=== PATIENT | male | born 1975 | race Caucasian/White ===

== ENCOUNTER → 2017-08-15 | Outpatient (CLI) | payer OTHER ==
--- NOTE | 2017-08-15 12:39 | DIAGNOSTIC IMAGING REPORT ---
VIDEO SWALLOW CLINICAL HISTORY: 42 years-old Male with CHOKING. Acute dysphasia with cough. TECHNIQUE: Video fluoroscopic evaluation of swallowing was performed in the AP and lateral projections by the speech pathology staff. The patient is fed nectar-thick and thin liquid barium, a barium coated wafer, and barium pudding. FLUOROSCOPY TIME: 1.7 minutes. COMPARISON STUDY: Chest radiographs 04/28/2014. FINDINGS: There is normal hyoid excursion and epiglottic deflection. No significant penetration or aspiration identified. Minimal dysmotility with tertiary contractions noted within the distal third of esophagus. IMPRESSION: 1. No aspiration identified. 2. Please see the speech pathologist report for detailed findings and recommendations. Electronically signed by: Eduardo Figueroa M.D. 08/15/2017 12:38 PM Dictated Date/Time: 08/15/2017 12:36 PM
--- NOTE | 2017-08-15 14:13 | SWALLOWING EVALUATION ---
HISTORY: This 42 year old man was referred for a video swallow study at [facility] in order to rule out aspiration and identify the safest consistencies for optimal oral intake. The patient reports he has episodes of coughing/choking up to 3 times per day. He states this can happen at any time, not just while eating. He does not have any significant PMH. Current diet is regular. PROCEDURE: The patient was seen in the Radiology Department of [facility] for the [facility]. Cursory examination of the oral cavity revealed natural upper and lower dentition in good condition. Oral motor function was wnl. The patient was seated on a stool and was viewed in both the Anterior-Posterior (A-P) and Lateral planes. Volitional phonation exercises completed in the A-P plane revealed bilateral vocal fold movement and vocal intensity within functional limits. In the lateral plane, the patient was given the following boluses: 1 tsp. thin liquid barium x 2, single swallow thin liquid barium self-presented from a cup, sequential swallows of thin liquid barium self-presented from a straw, 1 tsp. nectar-thick liquid barium, single swallow nectar-thick liquid barium self-presented from a cup, 1 tsp. barium pudding, and 1 club cracker coated in barium pudding. The patient was then repositioned into the A-P plane and given the following boluses: 1 tsp. nectar thick barium and 1 tsp. barium pudding. RESULTS: Oral Stage: Lip closure was adequate. The patient was able to maintain a cohesive liquid bolus in the oral cavity. Mastication was timely and efficient. Lingual motion for bolus transport was brisk. There was retention lining the tongue and palate after the initial swallow. The initiation of the pharyngeal swallow occurred when the bolus head reached the posterior angle of the ramus. Pharyngeal Stage: Soft palate elevation was complete. Laryngeal elevation revealed complete superior movement of the thyroid cartilage with complete approximation of the arytenoids to the epiglottic base. Anterior hyoid excursion was partially reduced and epiglottic deflection was complete. Laryngeal vestibular closure was complete. The pharyngeal stripping wave was present and complete. Pharyngeal contraction was complete. There was complete distention and duration of the opening to the pharyngoesophageal segment (PES). Tongue base retraction was partially reduced with a narrow column of contrast located between the tongue base and pharyngeal wall during the swallow. There was retention located in the valleculae and pyriforms after the swallow. There was no evidence of laryngeal penetration or aspiration for this study. Mild retention cleared with a second swallow. No significant difficulty identified. Esophageal stage: The patient presented with mild distal esophageal retention and retrograde flow below the PES. This is suggestive of esophageal dysmotility and reflux. SUMMARY/RECOMMENDATIONS: This patient presents with normal nadira-pharyngeal swallowing mechanics. He presents with s/s of esophageal dysfunction. The following is recommended: 1. Regular diet and thin liquids. 2. GERD precautions. Fully upright for meals and for 30 minutes after meals. Do not lay flat, keep head of bed at a 30 degree angle at all times, even while sleeping. 3. Follow up PCP and consider a GI consultation re: management of esophageal dysphagia. Consider further testing via Barium Swallow and/or medication management as indicated. A summary of the results and recommendations was discussed with the patient immediately after the study with verbal understanding. Thank you for referral of this patient. Please contact me at if any additional information is needed.
== END | disposition home or self-care (01) ==
LOC: C.RAD 11:43
PROVIDERS: ATTEND Family Medicine
DX: T17.308A Unspecified foreign body in larynx causing other injury, initial encounter (principal); X58.XXXA Exposure to other specified factors, initial encounter

== ENCOUNTER → 2018-02-19 | Outpatient (CLI) | payer OTHER ==
--- NOTE | 2018-02-19 16:20 | DIAGNOSTIC IMAGING REPORT ---
CHEST 2 VIEWS ROUTINE HISTORY: 42 years-old Male R05 acute cough COMPARISON: Chest radiographs 04/28/2014 TECHNIQUE: PA and lateral views of the chest FINDINGS: Cardiomediastinal and hilar silhouettes are within normal limits. No pneumothorax, pleural effusion, focal airspace consolidation or overt pulmonary edema. The bones of the chest appear grossly intact. IMPRESSION: No acute process. The above report was generated using voice recognition software. It may contain grammatical, syntax or spelling errors. Electronically signed by: Eduardo Figueroa M.D. 02/19/2018 4:18 PM Dictated Date/Time: 02/19/2018 4:17 PM
== END | disposition home or self-care (01) ==
LOC: C.RAD1850 15:30
PROVIDERS: ATTEND Family Medicine
DX: R05 Cough (principal)

== ENCOUNTER → 2018-03-06 | Outpatient (CLI) | payer OTHER ==
--- NOTE | 2018-03-11 15:17 | PULMONARY FUNCTION TEST ---
Spirometry shows a normal forced vital capacity and FEV1 but with a decreased FEV1/FVC ratio. Mid flow rates were 57%. These results could suggest a mild obstructive pattern. However, it appears the patient may not have optimally performed the study upon reviewing the flow volume loops. Advise clinical correlation. Consideration could be given to doing a repeat study including spirometry pre and postbronchodilator study. MTDD
== END | disposition home or self-care (01) ==
LOC: C.RC 10:03
PROVIDERS: ATTEND Family Medicine
DX: R05 Cough (principal)